=== PATIENT | female | born 1985 | race African-American/Black ===

== ENCOUNTER 2022-12-12 13:58 | Emergency (ER) | payer SELFPAY ==
[2022-12-12 14:18] VITALS: BP 142/83
[2022-12-12] MEDS ORDERED: HYDROcod/ACETAM 5/325 MG TABLET PO STA (15:03)
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
--- NOTE | 2022-12-12 15:37 | XRAY Report ---
PROCEDURE: Knee 4 View LT INDICATIONS: knee inj TECHNIQUE: 3 views of the left knee(s) were acquired. COMPARISON: None. FINDINGS: Bones: No fractures or dislocations. No suspicious bony lesions. Soft tissues: No joint effusion. No suspicious soft tissue calcifications. IMPRESSION: No visualized acute fracture or dislocation. However, occult injury cannot be excluded. Recommend short interval imaging follow-up in 7-10 days as clinically indicated for additional evalua tion. Reviewed by: Sakshi Ignacio MD on 12/12/2022 3:36 PM PST Approved by: Sakshi Ignacio MD on 12/12/2022 3:36 PM [facility] Station ID: [id number]
--- NOTE | 2022-12-12 15:45 | CT Report ---
PROCEDURE: CERVICAL SPINE WO INDICATIONS: neck inj TECHNIQUE: Noncontrast 3 mm thick sections acquired from the skull base to the T4 level. Sagittal and coronal r eformats were then constructed. For radiation dose reduction, the following was used: automated exp osure control, adjustment of mA and/or kV according to patient size. COMPARISON: None. FINDINGS: Image quality: Excellent. Bones: No fractures or dislocations. Visualized superior ribs are intact. Soft tissues: Prevertebral soft tissues are normal in thickness. No paravertebral hematomas. No ap ical pneumothoraces. IMPRESSION: No displaced fracture or traumatic subluxation. Reviewed by: Edmar Melara on 12/12/2022 3:43 PM [facility] Approved by: Edmar Melara on 12/12/2022 3:43 PM [facility] Station ID: [id number]
== END 2022-12-12 16:37 | disposition home or self-care (01) ==
LOC: ED 13:58
DX: S80.02XA Contusion of left knee, initial encounter (principal); M54.2 Cervicalgia; Y35.819A Legal intervention involving manhandling, unspecified person injured, initial encounter; Y92.9 Unspecified place or not applicable
CPT/HCPCS: 72125; 73564; 99283; 99284; A9270